=== PATIENT | male | born 1950 ===

== ENCOUNTER 2017-10-22 04:05 | Observation (INO) | payer MEDICARE, OTHER ==
[2017-10-22 04:12] VITALS: BMI 39.8
[2017-10-22] MEDS ORDERED: Albuterol-Ipratrop 3 mg / 0.5 (3 ml) UD IH STA (04:14)
--- NOTE | 2017-10-22 04:20 | ED PDOC ---
Arrival/HPI - General Time Seen by Provider: 10/22/17 04:10 Historian: Patient - History of Present Illness Narrative History of Present Illness (Text): 10/22/17 04:00 Asif Lindquist is a 67 year old male, who presents to the emergency department complaining of shortness of breath for the past couple of days. Patient states it is worse when he lays flat and notes swelling on bilateral legs. No other complaints were made. Patient denies chest pain, fever, or cough. Time/Duration: < week Symptom Onset: Gradual Symptom Course: Worsening Past Medical History - Provider Review Nursing Documentation Reviewed: Yes Family/Social History - Physician Review Nursing Documentation Reviewed: Yes Family/Social History: Unknown Family HX Allergies/Home Meds Allergies/Adverse Reactions: Allergies No Known Allergies Allergy (Verified 10/22/17 04:12) Home Medications: Home Meds Medication Instructions Recorded Confirmed Carvedilol [Coreg] 6.25 mg PO BID 10/22/17 10/22/17 Lisinopril/Hydrochlorothiazide 20 - 25 mg PO DAILY 10/22/17 10/22/17 [Lisinopril-Hctz 20-25 mg Tab] Metformin HCl [Glucophage] 1,000 mg PO BID 10/22/17 10/22/17 SITagliptin [Januvia] 50 mg PO DAILY 10/22/17 10/22/17 amLODIPine [Norvasc] 10 mg PO DAILY 10/22/17 10/22/17 Review of Systems - Review of Systems Constitutional: absent: Fatigue, Fevers Eyes: absent: Vision Changes ENT: absent: Hearing Changes Respiratory: SOB Cardiovascular: absent: Chest Pain Gastrointestinal: absent: Abdominal Pain Genitourinary Male: absent: Dysuria Musculoskeletal: Other (bilateral leg swelling ). absent: Back Pain Neurological: absent: Headache Endocrine: absent: Polyuria Physical Exam Vital Signs Reviewed: Yes Vital Signs Temp Pulse Resp BP Pulse Ox 10/22/17 08:50 72 20 160/80 H 96 10/22/17 08:01 98.4 F 82 18 167/79 H 96 10/22/17 06:59 93 H 18 169/80 H 98 10/22/17 04:28 20 98 10/22/17 04:09 101 H 22 96 Temperature: Afebrile Blood Pressure: Normal Pulse: Tachycardic Respiratory Rate: Normal Appearance: Positive for: Well-Appearing, Non-Toxic, Comfortable Pain Distress: None Mental Status: Positive for: Alert and Oriented X 3 - Systems Exam Head: Present: Atraumatic, Normocephalic Pupils: Present: PERRL Extroacular Muscles: Present: EOMI Conjunctiva: Present: Normal Mouth: Present: Moist Mucous Membranes Respiratory/Chest: Present: Wheezes. No: Clear to Auscultation, Good Air Exchange, Respiratory Distress, Accessory Muscle Use Cardiovascular: Present: Regular Rate and Rhythm, Normal S1, S2. No: Murmurs Abdomen: Present: Normal Bowel Sounds. No: Tenderness, Distention, Peritoneal Signs, Guarding Upper Extremity: Present: Normal Inspection, Normal ROM, NORMAL PULSES. No: Cyanosis, Edema Lower Extremity: Present: Edema (+1 edema), NORMAL PULSES, Normal ROM, Swelling. No: Normal Inspection, Cyanosis, Tenderness Neurological: Present: GCS=15, CN II-XII Intact, Speech Normal Skin: Present: Warm, Dry, Normal Color. No: Rashes Psychiatric: Present: Alert, Oriented x 3, Normal Insight, Normal Concentration Medical Decision Making ED Course and Treatment: 10/22/17 Impression: 67 year old male with +1 edema on bilateral legs and mild wheezing. Plan: -- EKG -- Chest X-ray -- Labs -- Duoneb -- Reassess and disposition case d/w dr tracey for [facility] request[facility] dr maguire who accepts case Progress Notes: 10/24/17 17:28 - Lab Interpretations Microbiology Results: Microbiology Results 10/22/17 06:00 Blood-Venous Blood Culture - Preliminary NO GROWTH AFTER 48 HOURS 10/22/17 04:57 Blood-Venous Blood Culture - Preliminary NO GROWTH AFTER 48 HOURS Lab Results: 10/22/17 04:57 10/22/17 04:57 Lab Results 10/22/17 06:00: Influenza Typ A,B (EIA) Negative for flu a/b 10/22/17 04:57: Sodium 138, Potassium 3.8, Chloride 98, Carbon Dioxide 28, Anion Gap 15, BUN 22 H, Creatinine 1.2, Est GFR ( Amer) > 60, Est GFR ( Non-Af Amer) > 60, Random Glucose 183 H, Calcium 9.3, Total Bilirubin 0.4, AST 33, ALT 36, Alkaline Phosphatase 68, Lactate Dehydrogenase 505, Total Creatine Kinase 401 H, CK-MB (CK-2) 3.0, CK-MB (CK-2) % Cancelled, Troponin I 0.05, NT- Pro-B Natriuret Pep 544 H, Total Protein 7.3, Albumin 4.1, Globulin 3.2, Albumin /Globulin Ratio 1.3 10/22/17 04:57: PT 11.5, INR 1.01, APTT 33.9 10/22/17 04:57: WBC 6.7, RBC 4.84, Hgb 13.7 L, Hct 40.8 L, MCV 84.3, MCH 28.3, MCHC 33.6, RDW 13.4, Plt Count 247, MPV 10.3, Gran % 52.4, Lymph % (Auto) 26.3, [place] % (Auto) 16.0 H, Eos % (Auto) 4.9, Baso % (Auto) 0.4, Gran # 3.50, Lymph # (Auto) 1.8, [place] # (Auto) 1.1 H, Eos # (Auto) 0.3, Baso # (Auto) 0.03 I have reviewed the lab results: Yes - RAD Interpretation Radiology Orders: 10/22/17 04:14 CHEST PORTABLE [RAD] Stat Perioperative Nurse: Radiologist - EKG Interpretation EKG Interpretation (Text): 10/22/17 06:35 normal sinus rhythm rate rate of [address] segment right bundle-branch block Interpreted by ED Physician: Yes Type: 12 lead EKG - Medication Orders Current Medication Orders: Discontinued Medications Albuterol/Ipratropium (Duoneb 3 Mg/0.5 Mg (3 Ml) Ud) 3 ml IH STAT STA Stop: 10/22/17 04:15 Last Admin: 10/22/17 04:19 Dose: 3 ml Albuterol/Ipratropium (Duoneb 3 Mg/0.5 Mg (3 Ml) Ud) 3 ml IH Q15M VNO Stop: 10/22/17 06:16 Last Admin: 10/22/17 06:19 Dose: 3 ml Albuterol/Ipratropium (Duoneb 3 Mg/0.5 Mg (3 Ml) Ud) 3 ml IH [id number] VON Last Admin: 10/23/17 07:51 Dose: 3 ml Amlodipine Besylate (Norvasc) 10 mg PO DAILY [facility] Last Admin: 10/22/17 09:52 Dose: 10 mg MAR Blood Pressure Document 10/22/17 09:52 (Rec: 10/22/17 09:53 [place] [id number]) Blood Pressure Blood Pressure (100/60-150/90) 171/91 Carvedilol (Coreg) 6.25 mg PO BID [facility] Last Admin: 10/22/17 18:19 Dose: 6.25 mg MAR Pulse and Blood Pressure Document 10/22/17 18:19 (Rec: 10/22/17 18:19 [place] [id number]) Pulse Pulse Rate (60-90) 78 Blood Pressure Blood Pressure (100/60-150/90) 144/76 Enoxaparin Sodium (Lovenox) 100 mg SC Q12H [facility] PRN Reason: Protocol Last Admin: 10/23/17 00:06 Dose: Not Given Non-Admin Reason: Patient Refused Furosemide (Lasix) 40 mg IVP DAILY [facility] Last Admin: 10/22/17 15:02 Dose: 40 mg MAR Blood Pressure Document 10/22/17 15:02 (Rec: 10/22/17 15:02 [place] [id number]) Blood Pressure Blood Pressure (100/60-150/90) 144/76 IVP Administration Document 10/22/17 15:02 (Rec: 10/22/17 15:02 [place] [id number]) Charges for Administration # of IVP Administrations 1 Furosemide (Lasix) 40 mg IVP Q12 [facility] Last Admin: 10/22/17 21:48 Dose: Not Given Non-Admin Reason: Patient Refused MAR Blood Pressure Document 10/22/17 21:48 [facility] (Rec: 10/22/17 21:48 [place] [id number]) Blood Pressure Blood Pressure (100/60-150/90) 158/76 Hydrochlorothiazide (Hydrodiuril) 25 mg PO DAILY [facility] Last Admin: 10/22/17 09:52 Dose: 25 mg Ceftriaxone Sodium (Rocephin 1 Gram Ivpb) 1 gm in 100 mls @ 100 mls/hr IVPB DAILY [facility] PRN Reason: Protocol Last Admin: 10/22/17 09:51 Dose: 100 mls/hr eMAR Start Stop Document 10/22/17 09:51 (Rec: 10/22/17 09:52 [place] [id number]) Intravenous Solution Start Date 10/22/17 Start Time 09:51 End Date 10/22/17 End time 10:51 Total Infusion Time 60 Ipratropium [place] (Atrovent) 0.5 mg IH Q6 [facility] Last Admin: 10/23/17 07:51 Dose: Lisinopril (Zestril) 20 mg PO DAILY [facility] Last Admin: 10/22/17 09:55 Dose: 20 mg MAR Pulse and Blood Pressure Document 10/22/17 09:55 (Rec: 10/22/17 09:55 [id number] Pulse Pulse Rate (60-90) 103 Blood Pressure Blood Pressure (100/60-150/90) 171/91 Metformin HCl (Glucophage) 1,000 mg PO BID [facility] Last Admin: 10/22/17 18:19 Dose: 1,000 mg Methylprednisolone (Solu-Medrol) 125 mg IVP ONCE ONE Stop: 10/22/17 05:35 Last Admin: 10/22/17 05:42 Dose: 125 mg IVP Administration Document 10/22/17 05:42 SS (Rec: 10/22/17 05:45 SS [id number]) Charges for Administration # of IVP Administrations 1 Methylprednisolone (Solu-Medrol) 20 mg IVP Q12 VON Methylprednisolone (Solu-Medrol) 40 mg IVP Q12 [facility] Pantoprazole Sodium (Protonix Ec Tab) 40 mg PO 0600 [facility] Last Admin: 10/23/17 05:45 Dose: Not Given Non-Admin Reason: Patient Refused Sitagliptin Phosphate (Januvia) 50 mg PO DAILY [facility] Last Admin: 10/22/17 09:52 Dose: 50 mg - Scribe Statement The provider has reviewed the documentation as recorded by the Merle Delgado Provider Scribe Attestation: All medical record entries made by the Merle were at my direction and personally dictated by me. I have reviewed the chart and agree that the record accurately reflects my personal performance of the history, physical exam, medical decision making, and the department course for this patient. I have also personally directed, reviewed, and agree with the discharge instructions and disposition. Disposition/Present on Arrival - Present on Arrival Any Indicators Present on Arrival: No - Disposition Have Diagnosis and Disposition been Completed?: Yes Diagnosis: Asthmatic bronchitis, Congestive heart failure (CHF) Disposition: HOSPITALIZED Disposition Time: 07:00 Condition: FAIR
[2017-10-22 05:40] LABS: BASO # 0.03 K/mm3 (0.0-2.0); BASO % 0.4 % (0.0-3.0); EOS # 0.3 (0.0-0.7); EOS % 4.9 % (1.5-5.0); GRAN # 3.5 (1.4-6.5); GRAN % 52.4 % (50.0-68.0); HEMOGLOBIN 13.7 g/dL (14.0-18.0); LYMPH # 1.8 (1.2-3.4); LYMPH % 26.3 % (22.0-35.0); MEAN CELL VOLUME 84.3 fl (80.0-105.0); MEAN CORPUSCULAR HEMOGLOBIN 28.3 pg (25.0-35.0); MEAN CORPUSCULAR HGB CONC 33.6 g/dl (31.0-37.0); MEAN PLATELET VOLUME 10.3 fl (7.0-11.0); MONO # 1.1 (0.1-0.6); RBC 4.84 10^6/uL (3.5-6.1); RED CELL DISTRIBUTION WIDTH 13.4 % (11.5-14.5); WHITE BLOOD COUNT 6.7 10^3/ul (4.5-11.0)
[2017-10-22] MEDS: Albuterol-Ipratrop 3 mg / 0.5 (3 ml) UD IH SCH ×5 (05:45→21:02)
[2017-10-22 05:52] LABS: INR 1.01 (0.93-1.08); PROTHROMBIN TIME 11.5 SECONDS (9.4-12.5)
[2017-10-22 05:53] LABS: PARTIAL THROMBOPLASTIN TIME 33.9 Seconds (25.1-36.5)
[2017-10-22 06:53] LABS: ALB/GLOB RATIO 1.3 (1.1-1.8); ALBUMIN 4.1 g/dL (3.0-4.8); ALT/SGPT 36 U/L (7-56); AST/SGOT 33 U/L (17-59); BLOOD UREA NITROGEN 22 mg/dL (7-21); CALCIUM 9.3 mg/dL (8.4-10.5); GFR AFRICAN-AMERICAN > 60; GFR NON-AFRICAN AMERICAN > 60
[2017-10-22 09:00] LABS: B-TYPE NATRIURETIC PEPTIDE 544 pg/mL (0-450); TROPONIN I 0.05 ng/mL
[2017-10-22] MEDS ORDERED: cefTRIAXone 1 gm 1 GM/100 ML BAG IVPB SCH (10:00)
--- NOTE | 2017-10-22 10:32 | RAD ---
HISTORY: sob COMPARISON: No prior. FINDINGS: LUNGS: No active pulmonary disease. PLEURA: No significant pleural effusion identified, no pneumothorax apparent. CARDIOVASCULAR: Mild cardiomegaly OSSEOUS STRUCTURES: No significant abnormalities. VISUALIZED UPPER ABDOMEN: Normal. OTHER FINDINGS: None. IMPRESSION: No active disease.
[2017-10-22] MEDS: Ipratropium 0.02% Inhal Soln (0.5 mg/2.5 ml) UD IH SCH ×2 (11:30→17:46)
--- NOTE | 2017-10-22 13:03 | CARD ---
APPROVED REPORT EKG Measurement Heart [id number] <Conclusion> Normal sinus rhythm Right bundle branch block Abnormal ECG
[2017-10-22] MEDS ORDERED: Iodixanol 320 MG/ML 100 ML BOTTLE IV ONE (14:38)
[2017-10-22 21:23] VITALS: RESP 20
[2017-10-22] MEDS ORDERED: Enoxaparin 100 mg Syringe SC SCH (23:15)
[2017-10-23] MEDS ORDERED: Iodixanol 320 MG/ML 100 ML BOTTLE IV ONE (00:25)
--- NOTE | 2017-10-23 00:35 | HP ---
DATE OF EVALUATION: 10/22/2017 HISTORY OF PRESENT ILLNESS: Mr. Lindquist is a 67-year-old male admitted to the hospital with shortness of breath. He has history of shortness of breath for past few days. He is not able to lie flat, not able to sleep. He has morbid obesity. Denies any shortness of breath before. He also noticed bilateral leg swelling. No chest pain. No cough with expectoration. No fever. He has history of hypertension. Blood pressure fairly controlled with current medications. Denies bleeding from any site. PAST MEDICAL HISTORY: Hypertension, hyperlipidemia. PAST SURGICAL HISTORY: None. ALLERGIES: NO KNOWN DRUG ALLERGIES. HOME MEDICATIONS: Coreg 6.25 mg p.o. b.i.d., lisinopril, hydrochlorothiazide, metformin 1000 mg p.o. b.i.d., Januvia 50 mg daily, Norvasc 10 mg daily. REVIEW OF SYSTEMS: As per HPI. Rest of 12-point review of systems reviewed and negative. PHYSICAL EXAMINATION: GENERAL: In mild respiratory distress. VITAL SIGNS: Respiratory rate 22 per minute, pulse ox is 96 per minute on oxygen by nasal cannula, heart rate is 100 per minute, temperature 98.7. HEENT: Normal. NECK: No lymphadenopathy. CHEST: Air entry present and equal bilaterally. No added sounds. CARDIOVASCULAR: S1 and S2 normal. No murmur. No gallop. ABDOMEN: Soft, nontender, obese. No hepatosplenomegaly. EXTREMITIES: 1+ edema. NEUROLOGIC: Alert and oriented x3. No focal sensory or motor deficits. SKIN: No petechiae, no rash. DIAGNOSTIC DATA: Chest x-ray, no infiltrate. EKG, normal sinus rhythm. Nonspecific ST-T changes. Right bundle-branch block. LABORATORY DATA: White count 6.7, hemoglobin 13.7, hematocrit 40.8, platelet 247, monocyte 1.1%. ASSESSMENT: 1. Acute shortness of breath, concerning for pulmonary embolism. 2. Hypertension. 3. Bilateral leg edema. 4. Mild anemia. 5. Diabetes mellitus type 2. PLAN: He will be admitted to the hospital telemonitoring. IV Lasix 40 mg daily. To be given IV antibiotic, ceftriaxone 1 gm daily for chronic obstructive pulmonary disease exacerbation. He received 125 mg Solu-Medrol in the ER. We will give 20 mg IV b.i.d. Solu-Medrol. CT chest with angio, PE protocol ordered. CT chest could not be done today because of the respiratory distress. We will try to do CAT scan with PE protocol tomorrow morning. We will start him on Lovenox full dose anticoagulation for high suspicion of PE, 100 mg q.12 hour, 1 dose to be given stat. Continue amlodipine 10 mg daily, Coreg 6.25 mg b.i.d., and hydrochlorothiazide 25 mg daily. Lisinopril 10 mg daily. Continue metformin 1000 mg p.o. b.i.d. Cardiology consultation with Dr. Joseph requested. Pulmonary consultation with Dr. Hernandez requested. Workup for anemia, B12, folate level, iron studies ordered with a.m. labs. We will continue to monitor blood count. Sue Medina MD
--- NOTE | 2017-10-23 01:47 | CON ---
DATE: 10/22/2017 PULMONARY CONSULT REFERRING PHYSICIAN: Sue Medina MD REASON FOR CONSULT: Cough, shortness of breath, orthopnea, may have sleep apnea syndrome. HISTORY OF PRESENT ILLNESS: This is a 67-year-old gentleman with past medical history significant for hypertension, diabetes, comes into emergency room because of cough, shortness of breath, orthopnea, could not lie flat. No hemoptysis. No headache. No fever. No body aches. No sick contact. He is having leg swelling for the last couple of months. Denies any chest pain. No nausea. No vomiting. No diarrhea. PAST MEDICAL HISTORY: Hypertension, diabetes, obesity. FAMILY HISTORY: No significant cardiopulmonary disease reported. ALLERGIES: NONE KNOWN. SOCIAL HISTORY: Denies any smoking or alcohol use. MEDICATIONS: He is on Atrovent inhaled q.6 hours, Coreg 6.25 mg twice a day, DuoNeb q.6 hours, metformin 1000 mg twice a day, hydrochlorothiazide 25 mg daily, Januvia 50 mg daily, Lasix 40 mg daily, Norvasc 10 mg daily, Rocephin 1 gm daily, Solu-Medrol 20 mg q.12 hours, Zestril 20 mg daily. REVIEW OF SYSTEMS: No headache. No rhinitis. He has cough, not much sputum production, orthopnea. No chest pain. No nausea. No vomiting. No diarrhea. He does have leg swelling. Admit to have loud snoring, daytime sleepy and tired. PHYSICAL EXAMINATION: VITAL SIGNS: Lying in the bed, head at 45 degrees, temperature is 98, heart rate is 103, respiratory rate is 20 to 22, blood pressure 144/76, pulse oximetry 97% on 2 liters nasal cannula. HEENT: Moist mucous membranes. Crowded airway. Mallampati score is 4. NECK: Supple, no JVD. LUNGS: Have a few crackles, expiratory wheezing and rhonchi. HEART: S1 and S2. ABDOMEN: Soft, nontender. No organomegaly. EXTREMITIES: He does have edema. NEUROLOGIC: Awake, alert, follows simple commands. LABORATORY DATA: Shows hemoglobin 13.7, hematocrit 40.8, WBC 6.7, platelet is 247. INR 1.01, PTT 34. Sodium 138, potassium 3.8, chloride 98, bicarbonate 28, BUN 22, creatinine 1.2, glucose 183, calcium 9.3, total bilirubin 0.4, AST 33, ALT 36, alkaline phosphatase is 68, LDH is 505. Troponin less than 0.05. ProBNP 544. Albumin is 4.1. Influenza A and B is negative. IMPRESSION AND PLAN: Morbid obesity, may have sleep apnea syndrome, cardiomegaly, probably we are looking into cardiac diastolic dysfunction with pulmonary hypertension, rule out chronic obstructive lung disease. Case discussed with Dr. Medina, agreed with the present management. Increase IV Lasix. Continue IV steroids, inhaled bronchodilator, gastric prophylaxis, deep venous thrombosis prophylaxis. We will place the patient on BiPAP 128 with 40% oxygen while sleeping. We will get procalcitonin. We will also get echocardiogram to assess LV and RV function. Gastroesophageal reflux disease precaution. Thank you and we will follow with you. Thom Hernandez MD
[2017-10-23] MEDS: Albuterol-Ipratrop 3 mg / 0.5 (3 ml) UD IH SCH ×2 (03:10→07:51)
--- NOTE | 2017-10-23 03:55 | CON ---
DATE: CONSULT SERVICE: Cardiology. CONSULTING PHYSICIAN: Thom Joseph MD REASON FOR CONSULTATION: Cardiac evaluation, shortness of breath, leg swelling. HISTORY OF PRESENT ILLNESS: Ameena is a 67-year-old male with past medical history of diabetes, hypertension, hyperlipidemia, who came to the emergency room with complaints of shortness of breath with increased leg swelling. The patient claims that shortness of breath had occurred when the patient lay flat. Denies any chest pain; denies any dyspnea on exertion prior to this episode. Denies any palpitation or night sweats or sweating. PAST MEDICAL HISTORY: Significant for diabetes, hypertension, hyperlipidemia. SOCIAL HISTORY: Denies any smoking. Denies any history of alcohol abuse. FAMILY HISTORY: Noncontributory. ALLERGIES: NO KNOWN DRUG ALLERGIES. CURRENT MEDICATIONS: The patient is taking at home metformin, carvedilol, amlodipine, Januvia, lisinopril and hydrochlorothiazide 20/25. REVIEW OF SYSTEMS: As per HPI. PHYSICAL EXAMINATION: VITAL SIGNS: Temperature is afebrile, heart rate 85, blood pressure 144/76. HEENT: PERRLA, intact. NECK: Supple. No carotid bruit or thyromegaly. CHEST: Clear to auscultation. HEART: S1 and S2 regular. ABDOMEN: Soft. EXTREMITIES: Clubbing and cyanosis negative. LABORATORY DATA: Blood workup as follows: WBC 6.7, hemoglobin 13.7, hematocrit 40.8, and platelet count 247. Chemistry shows sodium 138, potassium 3.8, chloride 98, carbon dioxide 28, anion gap of 15, BUN 22, and creatinine 1.2. Troponin is 0.01. EKG showed normal sinus rhythm, right bundle branch block, abnormal EKG. Chest x-ray, no definite , but prominent marking. IMPRESSION: Rule out acute bronchitis, troponin is indeterminate, proBNP is marginally elevated, diabetes, hypertension, hyperlipidemia. RECOMMENDATIONS: We will get echo to assess LV function. Gentle diuretics. DVT prophylaxis. Treating asthma bronchitis. We will follow up serial CPK, troponin. Further recommendations will depend on hospital course. We will follow with you. We will give a dose of Lasix and further recommendations will depend on hospital course. We will follow CPK trend. If CPK trend remains stable, may consider stress test for risk stratification. If the troponin trend upwards, consider cardiac catheterization. We will follow with you. Thank you Dr. Medina for providing us the opportunity in taking care of the patient, Asif Lindquist. Thom Joseph MD
[2017-10-23 05:30] VITALS: BP 132/68; TEMP 98.4; O2SAT 97
[2017-10-23] MEDS ORDERED: Pantoprazole 40 mg EC Tab PO SCH (06:00)
[2017-10-23 06:52] VITALS: PULSE 88
[2017-10-23 07:29] LABS: IRON 67 ug/dL (45-180)
[2017-10-23 07:42] LABS: % IRON SATURATION 25 % (20-55); TOTAL IRON BINDING CAPACITY 264 ug/dL (261-462)
[2017-10-23 07:49] LABS: TROPONIN I 0.05 ng/mL
[2017-10-23] MEDS: Ipratropium 0.02% Inhal Soln (0.5 mg/2.5 ml) UD IH SCH (07:51)
[2017-10-23 07:54] LABS: ALB/GLOB RATIO 1.2 (1.1-1.8); ALBUMIN 3.5 g/dL (3.0-4.8); CALCIUM 9.1 mg/dL (8.4-10.5); MAGNESIUM 1.8 mg/dL (1.7-2.2)
[2017-10-23 08:10] LABS: CK-MB 3.2 ng/mL (0.0-3.6)
[2017-10-23] MEDS ORDERED: Enoxaparin 40 mg Syringe SC SCH (10:00)
[2017-10-23] MEDS ORDERED: MethylPREDNISolone 40 mg Vial IVP SCH ×2 (10:00)
[2017-10-23 12:20] LABS: FERRITIN 66.5 ng/mL
[2017-10-23 12:51] LABS: FOLATE 10.7 ng/mL
--- NOTE | 2017-10-23 18:13 | PN ---
DATE: 10/23/2017 REASON FOR THE CONSULTATION AND FOLLOWUP: Cardiac evaluation, shortness of breath, and leg swelling. SUBJECTIVE: The patient denies any chest pain or shortness of breath. The patient is kept n.p.o. but refusing a stress test. PHYSICAL EXAMINATION: VITAL SIGNS: Temperature afebrile, heart rate , blood pressure 132/68. HEENT: PERRLA. Extraocular muscles intact. NECK: Supple. No carotid bruits or thyromegaly. CHEST: Clear to auscultation. HEART: S1 and S2, regular. ABDOMEN: Soft. EXTREMITIES: Clubbing and cyanosis negative. LABORATORY DATA: Blood workup as follows; WBC 6.7, hemoglobin 13.7, hematocrit 40.8, platelet count 247. Chemistry shows sodium 134, potassium 4, chloride 96, carbon dioxide 27, anion gap 15, BUN 35, and creatinine 1.6. Total protein 6.5, albumin 3.5, albumin-globulin ratio of 3. Cholesterol 231, LDL 163, HDL 37. IMPRESSION: Rule out bronchitis. Troponin indeterminate range, marginally elevated BNP, diabetes, hypertension, hyperlipidemia, morbid obesity, multiple risk factors for coronary artery disease. Suggest echo and a stress test. We will wait for second set of troponin in the morning. If second set , I will do the stress test, discuss with the patient. The patient is refusing a stress test, says does not want anything in the body, but he will take the echo. Further recommendation depend upon the echo finding and the troponin. We will follow with you. Thank you Dr. Medina for providing me the opportunity in taking care of the patient, Macros Vivo. Thom Joseph MD
== END 2017-10-23 09:00 | disposition left against medical advice (07) ==
LOC: ED 04:05 → ERH 07:07 → 3RSO 09:06
PROVIDERS: ADMIT Internal Medicine Medical Oncology; ATTEND Internal Medicine Medical Oncology
DX: J45.909 Unspecified asthma, uncomplicated (principal); I50.9 Heart failure, unspecified; I11.0 Hypertensive heart disease with heart failure; E78.5 Hyperlipidemia, unspecified; E11.9 Type 2 diabetes mellitus without complications; D64.9 Anemia, unspecified; E66.01 Morbid (severe) obesity due to excess calories; Z79.84 Long term (current) use of oral hypoglycemic drugs; Z79.899 Other long term (current) drug therapy; Z68.39 Body mass index [BMI] 39.0-39.9, adult; R40.2412 Glasgow coma scale score 13-15, at arrival to emergency department; I51.7 Cardiomegaly; I27.20 Pulmonary hypertension, unspecified
CPT/HCPCS: 36415; 71045; 80053; 80061; 82550; 82553; 82607; 82728; 82746; 82948; 83540; 83550; 83615; 83735; 83880; 84100; 84145; 84443; 84484; 85025; 85610; 85730; 87040; 87804; 93005; 94640; 94660; 96374; 99285; G0378; J0696; J1940; J2930